=== PATIENT | male | born 1955 | race Caucasian/White ===

== ENCOUNTER 2018-12-25 19:53 | Emergency (ER) | payer OTHER ==
--- NOTE | 2018-12-25 21:22 | EDPHY ---
H & P Stated Complaint: vision changes while cooking, resolved, MRI scheduled Time Seen by Provider: 12/25/18 20:23 HPI/ROS: CHIEF COMPLAINT: vision loss HISTORY OF PRESENT ILLNESS: The patient is a 63-year-old man who suffers from occasional migraines. He states that he has had increasing migraines over the last several weeks and his primary Dr Madison has ordered an MRI scheduled for Tuesday. He states that that today he was standing in the kitchen cooking dinner when he suddenly experienced bilateral vision changes. He has a difficult time saying whether was vision loss verses double vision verses blurry vision. He states that his symptoms were bilateral and lasted for 15 min then resolved. It was painless. He is now baseline. No trauma. No recent infections or illness. No headache. No neck pain. Called the nursing line who recommended he come to the ER for evaluation. No diabetes. He did not feel dizzy or lightheaded. He did not have chest pain or shortness of breath. No nausea vomiting Severity: Moderate Modifying factors: Resolved REVIEW OF SYSTEMS: Constitutional: denies: chills, fever, recent illness, recent injury EENTM: See HPI Respiratory: denies: cough, shortness of breath Cardiac: denies: chest pain, irregular heart rate, lightheadedness, palpitations Gastrointestinal/Abdominal: denies: abdominal pain, diarrhea, nausea, vomiting, blood streaked stools Genitourinary: denies: dysuria, frequency, hematuria, pain Musculoskeletal: denies: joint pain, muscle pain Skin: denies: lesions, rash, jaundice, bruising Neurological: denies: headache, numbness, paresthesia, tingling, dizziness, weakness Hematologic/Lymphatic: denies: blood clots, easy bleeding, easy bruising Immunologic/allergic: denies: HIV/AIDS, transplant 10 systems reviewed and negative except as noted EXAM: GENERAL: Well-appearing, well-nourished and in no acute distress. HEAD: Atraumatic, normocephalic. Temporal artery tenderness. No claudication. EYES: Pupils equal round and reactive to light, extraocular movements intact, sclera anicteric, conjunctiva are normal. Limited nondilated Retinal exam normal. Ultrasound of bilateral eyes shows no sign of vitreous or retinal detachment or hemorrhage. No Abrasion. ENT: TMs normal, nares patent, oropharynx clear without exudates. Moist mucous membranes. NECK: Normal range of motion, supple without lymphadenopathy or JVD. LUNGS: Breath sounds clear to auscultation bilaterally and equal. No wheezes rales or rhonchi. HEART: Regular rate and rhythm without murmurs, rubs or gallops. ABDOMEN: Soft, nontender, normoactive bowel sounds. No guarding, no rebound. No masses appreciated. BACK: No CVA tenderness, no spinal tenderness, step-offs or deformities EXTREMITIES: Normal range of motion, no pitting or edema. No clubbing or cyanosis. NEUROLOGICAL: Cranial nerves II through XII grossly intact. Normal speech, normal gait. 5/5 strength, normal movement in all extremities, normal sensation , normal reflexes PSYCH: Normal mood, normal affect. SKIN: Warm, dry, normal turgor, no visible rashes or lesions. Source: Patient Exam Limitations: No limitations - Personal History Current Tetanus Diphtheria and Acellular Pertussis (TDAP): Unsure - Medical/Surgical History Hx Asthma: No Hx Chronic Respiratory Disease: No Hx Diabetes: No Hx Cardiac Disease: No Hx Renal Disease: No Hx Cirrhosis: No Hx Alcoholism: No Hx HIV/AIDS: No Hx Splenectomy or Spleen Trauma: No Other PMH: PSH: t&A;. PMH: celiac dis; Migraines - Family History Significant Family History: No pertinent family hx - Social History Smoking Status: Never smoked Alcohol Use: None Constitutional: Initial Vital Signs Temperature (C) 36.7 C 12/25/18 19:57 Heart Rate 76 12/25/18 19:57 Respiratory Rate 17 12/25/18 19:57 Blood Pressure 127/84 H 12/25/18 19:57 O2 Sat (%) 93 12/25/18 19:57 O2 Delivery Mode Room Air Allergies/Adverse Reactions: No Known Allergies Allergy (Unverified 12/25/18 20:00) Home Medications: Medication Instructions Recorded NK [No Known Home Meds] 11/08/15 Medical Decision Making - Diagnostics EKG Interpretation: An EKG obtained and was read and documented in trace view. Please see trace view for full reading and report. Sinus rhythm, no acute ischemic changes Imaging: Discussed imaging studies w/ call or contact centre operator Radiologist ED Course/Re-evaluation: 10:50 p.m. we discussed the MRI results. The patient is relieved. He remains asymptomatic. Will start on daily aspirin and have him follow up with Neurology. Patient states that he has already been to referred to 1 by his primary. He will also follow up with his primary doctor next 48 hr. Patient's ABCD2 to score is 2 which puts him at very low risk Differential Diagnosis: Partial list of the Differential diagnosis considered include but were not limited to; amaurosis fugax, TIA, retinal artery or vein occlusion, retinal detachment and although unlikely based on the history and physical exam, I also considered temporal arteritis, optic neuritis, infection. - Data Points Laboratory Results: Laboratory Results 12/25/18 22:35 12/25/18 22:35 Point of Care Test Results: Chemistry 12/25/18 22:38 POC Troponin I 0.00 ng/mL ng/mL (0.00-0.08) Departure - Departure Disposition: Home, Routine, Self-Care Clinical Impression: TIA (transient ischemic attack) Condition: Fair Instructions: Transient Ischemic Attack (ED) Additional Instructions: Began taking daily aspirin 325 mg. Referrals: KATY MADISON [Primary Care Provider] - 1-2 days without fail Natalio Marcelo DO [Medical Doctor] - 5-7 days, call for appt.
[2018-12-25 22:45] LABS: PLATELET COUNT 226 10^3/uL (150-400)
[2018-12-25 22:52] LABS: INR 1.12 (0.83-1.16)
--- NOTE | 2018-12-25 23:04 | CPEKG ---
Test Reason : OPEN Blood Pressure : / mmHG Vent. Rate : 063 BPM Atrial Rate : 064 BPM P-R Int : 159 ms QRS Dur : 088 ms QT Int : 428 ms P-R-T Axes : 028 002 038 degrees QTc Int : 439 ms Sinus rhythm Confirmed by Amandeep Hudson ([id number]) on 12/25/2018 11:03:40 PM Referred By: AMANDEEP HUDSON Confirmed By:Amandeep Hudson
[2018-12-25 23:37] VITALS: BP 119/79
== END 2018-12-25 23:36 | disposition home or self-care (01) ==
DX: G45.9 Transient cerebral ischemic attack, unspecified (principal)
CPT/HCPCS: 70551-PN; 84484-ER